=== PATIENT | male | born 1990 | race Caucasian/White ===

== ENCOUNTER 2020-04-04 00:13 | Emergency (ER) | payer SELFPAY ==
[~2020-04-04] VITALS: Ht 177.8 cm; Wt 104.3 kg
[2020-04-04 00:20] VITALS: BP 136/86
--- NOTE | 2020-04-04 00:20 | NUR ---
ED Nurse Note: Patient brought into ED by [facility] Hilario for paranoia. Patient admits to using meth and alcohol within the last 12 hours. He believes someone is out to get him and is therefore having visual and auditory hallucinations. Patient has hx of schizophrenia and has not been taking his medication for the past few months. He denies homicidal or suicidal thoughts. Patient is aaox4, appears severely anxious, but is otherwise breathing normal and unlabored. Patient placed in bed and reassured that he is safe. Will continue to closely monitor.
[2020-04-04] MEDS ORDERED: ZYPREXA5 MG ORAL (00:23)
--- NOTE | 2020-04-04 00:24 | Emergency Room Report ---
History of Present Illness General Chief Complaint: Behavioral Complaint Source: Patient Present Illness HPI This a 30-year-old male with psychiatric history. He has been off of his Seroquel and Lexapro for the last 4 months. He presents with chief complaint of hearing voices and feeling paranoid. He felt like that somebody is out to get him. He called from a [facility] house. He admits to using alcohol and methamphetamine today. No fever chills but no nausea no vomiting. No suicidal thoughts homicidal thought. Denies any other complaint. Nothing made it better. Nothing made it worse. Allergies: Coded Allergies: No Known Allergies (Unverified , 04/04/20) COVID-19 Screening COVID-19 risk:Contact w/high r: No Has patient experienced mehta: No COVID-19 Testing performed DINKING MACHINE OPERATOR: No Patient History Past Medical History: see triage record, old chart reviewed Past Surgical History: none Family History: none Social History: tobacco use, ETOH, drug use Immunizations: other Reviewed Nursing Documentation: PMH: Agreed; PSxH: Agreed Nursing Documentation-PMH History Of Psychiatric Problem: Yes Review of Systems ENT: Denies: sore throat Cardiovascular: Denies: chest pain, palpitations Gastrointestinal/Abdominal: Denies: nausea, vomiting, diarrhea Musculoskeletal: Denies: back problems Skin: Denies: rash Neurological: Denies: COTA, seizures All Other Systems: negative except mentioned in HPI Physical Exam Vital Signs Date Time Temp Pulse Resp B/P (MAP) Pulse Ox O2 Delivery O2 Flow Rate FiO2 04/04/20 00:06 99.3 100 20 136/86 (103) 99 Room Air Vitals unremarkable Sp02 EP Interpretation: reviewed, normal General Appearance: alert/responsive, no apparent distress, non-toxic Head: normocephalic, atraumatic Eyes: PERRL, EOMI ENT: oropharynx normal Neck: supple/symm/no masses Respiratory: effort normal, no rhonchi, no wheezing Cardiovascular: no murmur, gallop, rub Gastrointestinal: non-tender, no mass, non-distended, no rebound/guarding, normal bowel sounds Musculoskeletal: gait & station normal Neurologic: oriented x3, sensory intact, motor strength/tone normal Psychiatric: no suicidal/homicidal ideation, other - Patient is jittery. He keeps looking around. Skin: no rash, normal palpation Medical Decision Making Diagnostic Impression: Primary Impression: Psychosis Qualified Codes: F23 - Brief psychotic disorder Additional Impression: Methamphetamine abuse ER Course This patient presents with acute psychosis secondary to substance abuse. Not suicidal or homicidal. Better after Zyprexa. There is no criteria for 5150. This patient is a chronic risk of self injury due to poor impulse control, limited coping skills, and judgment intermittently impaired by intoxication. I believe that the available clinical evidence to suggest that these characteristics derived primarily from personality disorder and are likely very stable over time. Hospitalization would likely attenuate risk of self-harm only during snf period, without lasting risk reduction. Serious self-harm, while possible, would likely be inadvertent, and because of impulsivity, and foreseeable. For these reasons, I do not believe hospitalization would provide meaningful reduction in risk of self-harm. Last Vital Signs Date Time Temp Pulse Resp B/P (MAP) Pulse Ox O2 Delivery O2 Flow Rate FiO2 04/04/20 00:06 99.3 100 20 136/86 (103) 99 Room Air Status: improved Disposition: HOME, SELF-CARE Condition: Stable Scripts Olanzapine* (ZYPREXA*) 5 Mg Tablet 5 MG ORAL DAILY, #30 TAB Prov: Simeon Mayers MD 04/04/20 Patient Instructions: Self-Destructive Behavior Additional Instructions: Stop using drugs. Follow-up with mental health within a week. Return if worse. Simeon Mayers MD Apr 04, 2020 00:24
--- NOTE | 2020-04-04 01:15 | NUR ---
ED Nurse Note: residential case manager bedside reassuring patient that he is safe. Patient is having severe paranoid ideations. Will continue to monitor.
--- NOTE | 2020-04-04 01:20 | NUR ---
ED Nurse Note: Patient is requesting to leave and wants to go back to his sober living facility.
[2020-04-04 01:40] VITALS: BP 130/78
--- NOTE | 2020-04-04 01:40 | NUR ---
ER DISCHARGE NOTE: Patient is cleared to be discharged per ERMD, pt is aox4, on room air, with stable vital signs. pt was given dc and prescription instructions, pt was able to verbalize understanding, pt id band removed. pt is able to ambulate with steady gait. pt took all belongings. patient does not want to harm himself or others.
== END 2020-04-04 01:40 | disposition home or self-care (01) ==
LOC: EDBD 00:13 → EMR 00:51
DX: F23 Brief psychotic disorder (principal); F15.10 Other stimulant abuse, uncomplicated
CPT/HCPCS: 99282